=== PATIENT | male | born 1965 | race Caucasian/White ===

== ENCOUNTER 2018-04-14 19:45 | Emergency (ER) | payer MEDICAID ==
[~2018-04-14] VITALS: Ht 175.3 cm; Wt 81.6 kg
[2018-04-14 19:52] VITALS: BP 129/82; Ht 175.3 cm; Wt 81.6 kg
== END 2018-04-14 22:00 | disposition home or self-care (01) ==
LOC: D.ER 19:45
DX: S01.01XA Laceration without foreign body of scalp, initial encounter (principal); Y04.2XXA Assault by strike against or bumped into by another person, initial encounter; Y93.89 Activity, other specified; Y92.89 Other specified places as the place of occurrence of the external cause; S40.012A Contusion of left shoulder, initial encounter; F17.200 Nicotine dependence, unspecified, uncomplicated

== ENCOUNTER 2018-04-23 20:02 | Emergency (ER) | payer MEDICAID ==
[~2018-04-23] VITALS: Ht 175.3 cm; Wt 81.8 kg
[2018-04-23 21:49] VITALS: BP 141/91; Ht 175.3 cm; Wt 81.8 kg
[2018-04-23] MEDS ORDERED: DEPAKOTE125 MG PO (21:51)
[2018-04-23] MEDS ORDERED: PRILOSEC2.5 MG (21:52)
[2018-04-23 22:49] LABS: BASOPHILS 0.2 % (0-2); EOSINOPHILS 2.5 % (0-7); HEMATOCRIT 41.8 % (42.0-54.0); IMMATURE GRANULOCYTES 0.2 % (0-5); LYMPHOCYTES 28.5 % (15-50); MCH 31.5 pg (26.0-34.0); MCHC 33.5 g/dL (31.0-37.0); MCV 94.1 fL (80.0-100.0); MEAN PLATELET VOLUME 8.7 fL (7.4-10.4); MONOCYTES 10.2 % (2-11); NEUTROPHILS 58.4 % (40-80); PLATELET COUNT 231 10x3/uL (130-400); RBC 4.44 10x6/uL (4.20-6.10); RDW 14.3 % (11.5-14.5)
[2018-04-23 22:50] LABS: APTT 25.7 SECONDS (22.8-39.4); INR 0.95 (0.85-1.17); PROTIME 12.3 SECONDS (11.6-15.0)
[2018-04-23 22:52] LABS: D-DIMER-QUANTITATIVE 1.56 ug/mLFEU (0.20-0.54)
[2018-04-23 22:58] LABS: ALBUMIN 3.4 g/dL (3.4-5.0); ALKALINE PHOSPHATASE 99 U/L (46-116); ALT (SGPT) 20 U/L (10-68); BILIRUBIN - TOTAL 0.36 mg/dL (0.2-1.3); CALC OSMOLALITY 273 mosm/kg (275-300); CALCIUM 8.5 mg/dL (8.5-10.1); CARBON DIOXIDE 29.5 mmol/L (21.0-32.0); CHLORIDE - SERUM 102 mmol/L (98-107); CREATININE - SERUM 0.8 mg/dL (0.6-1.3); GLUCOSE 83 mg/dL (74-106); POTASSIUM - SERUM 4.2 mmol/L (3.5-5.1); PROTEIN - SERUM 7.4 g/dL (6.4-8.2); SODIUM 138 mmol/L (136-145); UREA NITROGEN 11 mg/dL (7-18); eGFR NON AFRICAN AMERICAN > 90 mL/min (90-120)
[2018-04-23 23:08] LABS: CKMB 2.3 U/L (0.0-3.6); CREATINE KINASE 122 UL (21-232)
[2018-04-23 23:09] LABS: TROPONIN-I < 0.017 ng/mL (0.000-0.060)
== END 2018-04-24 05:01 | disposition left against medical advice (07) ==
LOC: D.ER 20:02
PROVIDERS: Family Medicine
DX: R07.9 Chest pain, unspecified (principal); R79.1 Abnormal coagulation profile; K21.9 Gastro-esophageal reflux disease without esophagitis; F17.200 Nicotine dependence, unspecified, uncomplicated

== ENCOUNTER 2018-07-20 21:54 | Inpatient (IN) | payer MEDICAID ==
[~2018-07-20] VITALS: Ht 175.3 cm; Wt 76.4 kg
--- NOTE | ~2018-07-20 | MORECARE ---
CASE MANAGEMENT DISCHARGE SUMMARY PATIENT: WILLIAM LACEY UNIT: [id number] ADM DATE: 07/21/18 AGE: 53 : 67 SEX: M ROOM/BED: D.2206 AUTHOR: BOLIVAR,DOC PHYSICIAN: REFERRING PHYSICIAN: RAQUEL HOPKINS MD DATE OF SERVICE: 07/22/18 Discharge Plan Patient Name: WILLIAM LACEY Facility: [facility]:[place] : 1965 Planned Disposition: Home Anticipated Discharge Date: 07/22/18 Discharge Date: 07/22/2018 Expected LOS: 1 Initial Reviewer: [email or web address] Initial Review Date: 07/21/2018 Generated: 07/22/18 4:42 pm Comments DCP- Discharge Planning Updated by [email or web address]: Adri Tapia on 07/22/18 2:[address] LATE ENTRY 1300 CM TO PATIENT'S ROOM TWICE. HE WAS NOT PRESENT. HE WAS OUT WALKING WITH A FRIEND PER NURSING STAFF. PATIENT STATES HE IS BEING DISCHARGED TO HOME WITH HIS SISTER. CM HAD CALLED [facility] TO FOLLOW UP ON DISCHARGE INSTRUCTIONS GIVEN TO THE PATIENT FOR FOLLOWUP CARE PER PSYCH ADMISSION. MIN REPORTS HE IS HOMELESS. HAD BEEN TO [facility] ER PRIOR TO BEING ADMITTED TO [facility] FROM [facility]. HE WAS DISCHARGED ON MONDAY FROM [facility]. SEEN HERE AT [facility] AND ADMITTED Monday07/20/18. HE DOES HAVE COURT DATES TO FOLLOWUP. HAD BEEN SCHEDULED FOR 07/17, 07/30, 08/05. PATIENT STATED HE HAS SOMEPLACE TO GO POST DISCHARGE, INDICATED HIS SISTER'S HOME WHEN ASKED. PCP- DR FUAD GHOTRA HE THINKS. PHARMACY- [facility] HE STATES HE HAS TRANSPORTATION. DENIES ANY NEEDS! HAD MEDICATION RETURNED TO HIM FROM THE ER PYXIS ASSISTED BY CLINICAL COORDINATOR. PRIMARY TO BRING DISCHARGE PAPERWORK WHEN COMPLETED DCPIA - Discharge Planning Initial Assessment Updated by [email or web address]: Adri Tapia on 07/22/18 3:22 pm * Is the patient Alert and Oriented? Yes * How many steps to enter\exit or inside your home? none * PCP DR FUAD GHOTRA * Pharmacy [facility] * Preadmission Environment Homeless * Other Environment [facility] DISCHARGED 07/18/18 * Facility Name [facility] * ADLs Independent * Equipment None * Other Equipment DENIES ANY ADDITIONAL DME * List name and contact numbers for known caregivers / representatives who currently or will assist patient after discharge: SOTERO DEE- FBLYIR-[phone] * Verbal permission to speak to the caregivers and representatives has been obtained from the patient. No * Community resources currently utilized None * Please name any agencies selected above. N/A * Additional services required to return to the preadmission environment? No * Can the patient safely return to the preadmission environment? Yes * Has this patient been hospitalized within the prior 30 days at any hospital? Yes Last DP export: 07/22/18 2:29 Patient Name: WILLIAM LACEY Page 71405 at 1542 All edits/amendments must be made on the electronic document DICTATION DATE: 07/22/18 154 CLINICAL ASSESSMENT MANAGER: DAMIEN 07/22/18 154 RPT#: [id number] DC DATE:07/22/18 STATUS: DIS IN [facility] [address] [place] [address] END OF REPORT
--- NOTE | ~2018-07-20 | MORECARE ---
CASE MANAGEMENT DISCHARGE SUMMARY PATIENT: WILLIAM LACEY UNIT: [id number] ADM DATE: 07/21/18 AGE: 53 : 67 SEX: M ROOM/BED: D.2206 AUTHOR: BOLIVAR,DOC PHYSICIAN: REFERRING PHYSICIAN: RAQUEL HOPKINS MD DATE OF SERVICE: 07/23/18 Discharge Plan Patient Name: WILLIAM LACEY Facility: [facility]:[place] : 1965 Planned Disposition: Home Anticipated Discharge Date: 07/22/18 Discharge Date: 07/22/2018 Expected LOS: 1 Initial Reviewer: [email or web address] Initial Review Date: 07/21/2018 Generated: 07/23/18 12:11 pm Comments DCP- Discharge Planning Updated by [email or web address]: Adri Tapia on 07/22/18 2:[address] LATE ENTRY 1300 CM TO PATIENT'S ROOM TWICE. HE WAS NOT PRESENT. HE WAS OUT WALKING WITH A FRIEND PER NURSING STAFF. PATIENT STATES HE IS BEING DISCHARGED TO HOME WITH HIS SISTER. CM HAD CALLED [facility] TO FOLLOW UP ON DISCHARGE INSTRUCTIONS GIVEN TO THE PATIENT FOR FOLLOWUP CARE PER PSYCH ADMISSION. MIN REPORTS HE IS HOMELESS. HAD BEEN TO [facility] ER PRIOR TO BEING ADMITTED TO [facility] FROM [facility]. HE WAS DISCHARGED ON MONDAY FROM [facility]. SEEN HERE AT [facility] AND ADMITTED Monday07/20/18. HE DOES HAVE COURT DATES TO FOLLOWUP. HAD BEEN SCHEDULED FOR 07/17, 07/30, 08/05. PATIENT STATED HE HAS SOMEPLACE TO GO POST DISCHARGE, INDICATED HIS SISTER'S HOME WHEN ASKED. PCP- DR FUAD GHOTRA HE THINKS. PHARMACY- [facility] HE STATES HE HAS TRANSPORTATION. DENIES ANY NEEDS! HAD MEDICATION RETURNED TO HIM FROM THE ER PYXIS ASSISTED BY CLINICAL COORDINATOR. PRIMARY TO BRING DISCHARGE PAPERWORK WHEN COMPLETED DCPIA - Discharge Planning Initial Assessment Updated by [email or web address]: Adri Tapia on 07/22/18 3:22 pm * Is the patient Alert and Oriented? Yes * How many steps to enter\exit or inside your home? none * PCP DR FUAD GHOTRA * Pharmacy [facility] * Preadmission Environment Homeless * Other Environment [facility] DISCHARGED 07/18/18 * Facility Name [facility] * ADLs Independent * Equipment None * Other Equipment DENIES ANY ADDITIONAL DME * List name and contact numbers for known caregivers / representatives who currently or will assist patient after discharge: SOTERO DEE- [id number]-[phone] * Verbal permission to speak to the caregivers and representatives has been obtained from the patient. No * Community resources currently utilized None * Please name any agencies selected above. N/A * Additional services required to return to the preadmission environment? No * Can the patient safely return to the preadmission environment? Yes * Has this patient been hospitalized within the prior 30 days at any hospital? Yes Last DP export: 07/22/18 2:42 Patient Name: WILLIAM LACEY Page 61120 at 1111 All edits/amendments must be made on the electronic document DICTATION DATE: 07/23/18 1110 DREDGE OR BARGE SHORE HAND: DAMIEN 07/23/18 1110 RPT#: [id number] DC DATE:07/22/18 STATUS: DIS IN [facility] [address] [place] [address] END OF REPORT
--- NOTE | ~2018-07-20 | MORECARE ---
CASE MANAGEMENT DISCHARGE SUMMARY PATIENT: WILLIAM LACEY UNIT: [id number] ADM DATE: 07/21/18 AGE: 53 : 67 SEX: M ROOM/BED: D.2206 AUTHOR: ANDREA LUTZ PHYSICIAN: REFERRING PHYSICIAN: RAQUEL HOPKINS MD DATE OF SERVICE: 07/22/18 Discharge Plan Patient Name: WILLIAM LACEY [facility] [facility] 1965 Planned Disposition: Home Anticipated Discharge Date: 07/22/18 Discharge Date: 07/22/2018 Expected LOS: 1 Initial Reviewer: [email or web address] Initial Review Date: 07/21/2018 Generated: 07/22/18 4:29 pm DCPIA - Discharge Planning Initial Assessment Updated by [email or web address]: Adri Tapia on 07/22/18 3:22 pm * Is the patient Alert and Oriented? Yes * How many steps to enter\exit or inside your home? none * PCP DR FUAD GHOTRA * Pharmacy [facility] * Preadmission Environment Homeless * Other Environment [facility] DISCHARGED 07/18/18 * Facility Name [facility] * ADLs Independent * Equipment None * Other Equipment DENIES ANY ADDITIONAL DME * List name and contact numbers for known caregivers / representatives who currently or will assist patient after discharge: S[facility]ERO [facility]ZL-[phone] * Verbal permission to speak to the caregivers and representatives has been obtained from the patient. No * Community resources currently utilized None * Please name any agencies selected above. N/A * Additional services required to return to the preadmission environment? No * Can the patient safely return to the preadmission environment? Yes * Has this patient been hospitalized within the prior 30 days at any hospital? Yes Last DP export: 07/22/18 2:21 Patient Name: WILLIAM LACEY Page 17854 at 1522 All edits/amendments must be made on the electronic document DICTATION DATE: 07/22/18 152 CORDWOOD CUTTER: DAMIEN 07/22/18 1529 RPT#: [id number] DC DATE:07/22/18 STATUS: DIS IN [facility] [address] [place] [address] END OF REPORT
--- NOTE | ~2018-07-20 | MORECARE ---
CASE MANAGEMENT DISCHARGE SUMMARY PATIENT: WILLIAM LACEY UNIT: [id number] ADM DATE: 07/21/18 AGE: 53 : 67 SEX: M ROOM/BED: D.2206 AUTHOR: ANDREA LUTZ PHYSICIAN: REFERRING PHYSICIAN: RAQUEL HOPKINS MD DATE OF SERVICE: 07/22/18 Discharge Plan Patient Name: WILLIAM LACEY [facility] [facility] 1965 Planned Disposition: Home Anticipated Discharge Date: 07/22/18 Discharge Date: 07/22/2018 Expected LOS: 1 Initial Reviewer: [email or web address] Initial Review Date: 07/21/2018 Generated: 07/22/18 4:21 pm Patient Name: WILLIAM LACEY Page 31449 at 1521 All edits/amendments must be made on the electronic document DICTATION DATE: 07/22/18 1521 CATEGORY DEVELOPMENT MANAGER: DAMIEN 07/22/18 1521 RPT#: [id number] DC DATE:07/22/18 STATUS: DIS IN [facility] [address] [place] [address] END OF REPORT
[~2018-07-20 21:54] MED LIST: DEPAKOTE125 MG PO; PRILOSEC2.5 MG
[2018-07-20 22:34] LABS: BASOPHILS 0.2 % (0-2); EOSINOPHILS 2.2 % (0-7); HEMATOCRIT 38.5 % (42.0-54.0); HEMOGLOBIN 13.2 g/dL (13.5-17.5); IMMATURE GRANULOCYTES 0.2 % (0-5); LYMPHOCYTES 49.7 % (15-50); MCH 32.2 pg (26.0-34.0); MCHC 34.3 g/dL (31.0-37.0); MCV 93.9 fL (80.0-100.0); MEAN PLATELET VOLUME 9.1 fL (7.4-10.4); MONOCYTES 8.2 % (2-11); NEUTROPHILS 39.5 % (40-80); PLATELET COUNT 160 10x3/uL (130-400); RDW 17.2 % (11.5-14.5); WBC 5.4 10x3/uL (4.8-10.8)
[2018-07-20 22:39] LABS: ALBUMIN 3.5 g/dL (3.4-5.0); ALKALINE PHOSPHATASE 83 U/L (46-116); ALT (SGPT) 48 U/L (10-68); BILIRUBIN - TOTAL 0.23 mg/dL (0.2-1.3); CALC OSMOLALITY 293 mosm/kg (275-300); CALCIUM 8.7 mg/dL (8.5-10.1); CARBON DIOXIDE 26.7 mmol/L (21.0-32.0); CHLORIDE - SERUM 110 mmol/L (98-107); CREATININE - SERUM 0.8 mg/dL (0.6-1.3); GLUCOSE 102 mg/dL (74-106); POTASSIUM - SERUM 3.9 mmol/L (3.5-5.1); PROTEIN - SERUM 6.9 g/dL (6.4-8.2); SODIUM 149 mmol/L (136-145); UREA NITROGEN 7 mg/dL (7-18); eGFR NON AFRICAN AMERICAN > 90 mL/min (90-120)
[2018-07-20 22:48] LABS: AMYLASE - SERUM 86 U/L (25-115); CKMB 0.9 U/L (0.0-3.6); CREATINE KINASE 94 UL (21-232); LIPASE 1324 U/L (73-393); MAGNESIUM - SERUM 2.5 mg/dL (1.8-2.4)
[2018-07-20 22:50] LABS: TROPONIN-I < 0.017 ng/mL (0.000-0.060)
[2018-07-20 23:01] LABS: APPEARANCE CLEAR (CLEAR); BILIRUBIN NEGATIVE (NEGATIVE); COLOR YELLOW (YELLOW); GLUCOSE NEGATIVE (NEGATIVE); KETONE SMALL mg/dL (NEGATIVE); NITRITE NEGATIVE (NEGATIVE); PROTEIN NEGATIVE (NEGATIVE); SPECIFIC GRAVITY 1.015 (1.005-1.020); UROBILINOGEN NORMAL (NORMAL)
[2018-07-20 23:11] LABS: UDS - AMPHET NEGATIVE QUAL (NEGATIVE); UDS - BARB NEGATIVE QUAL (NEGATIVE); UDS - BENZO POSITIVE QUAL (NEGATIVE); UDS - COCAINE NEGATIVE QUAL (NEGATIVE); UDS - OPIATE NEGATIVE QUAL (NEGATIVE); UDS - PCP NEGATIVE QUAL (NEGATIVE); UDS - THC POSITIVE QUAL (NEGATIVE)
[2018-07-21 00:36] VITALS: BP 122/78
[2018-07-21] MEDS ORDERED: BUSPAR10 MG PO (01:10)
[2018-07-21] MEDS ORDERED: ULTRAM50 MG PO (01:10)
[2018-07-21 01:22] VITALS: BP 106/78; Ht 175.3 cm; Wt 76.4 kg
[2018-07-21 04:00] VITALS: BP 111/64
[2018-07-21 06:22] LABS: BASOPHILS 0.4 % (0-2); EOSINOPHILS 1.6 % (0-7); HEMOGLOBIN 12.3 g/dL (13.5-17.5); IMMATURE GRANULOCYTES 0.2 % (0-5); LYMPHOCYTES 51.1 % (15-50); MCH 31.9 pg (26.0-34.0); MCHC 34.2 g/dL (31.0-37.0); MCV 93.5 fL (80.0-100.0); MEAN PLATELET VOLUME 8.9 fL (7.4-10.4); MONOCYTES 10.6 % (2-11); NEUTROPHILS 36.1 % (40-80); PLATELET COUNT 141 10x3/uL (130-400); RBC 3.85 10x6/uL (4.20-6.10); RDW 17.5 % (11.5-14.5); WBC 5.5 10x3/uL (4.8-10.8)
[2018-07-21 06:52] LABS: ALBUMIN 3.5 g/dL (3.4-5.0); ALKALINE PHOSPHATASE 76 U/L (46-116); ALT (SGPT) 48 U/L (10-68); BILIRUBIN - TOTAL 0.21 mg/dL (0.2-1.3); CALC OSMOLALITY 286 mosm/kg (275-300); CALCIUM 8.3 mg/dL (8.5-10.1); CARBON DIOXIDE 25.7 mmol/L (21.0-32.0); CHLORIDE - SERUM 109 mmol/L (98-107); CKMB 1.2 U/L (0.0-3.6); CREATINE KINASE 107 UL (21-232); CREATININE - SERUM 0.7 mg/dL (0.6-1.3); GLUCOSE 98 mg/dL (74-106); LIPASE 368 U/L (73-393); POTASSIUM - SERUM 4.2 mmol/L (3.5-5.1); PROTEIN - SERUM 6.7 g/dL (6.4-8.2); SODIUM 145 mmol/L (136-145); UREA NITROGEN 8 mg/dL (7-18); eGFR NON AFRICAN AMERICAN > 90 mL/min (90-120)
[2018-07-21 06:53] LABS: AMYLASE - SERUM 60 U/L (25-115); TROPONIN-I < 0.017 ng/mL (0.000-0.060)
[2018-07-21 12:33] VITALS: BP 122/57
[2018-07-21 17:34] VITALS: BP 139/97
[2018-07-21 19:50] VITALS: BP 134/80
[2018-07-22] VITALS: BP 130/87
[2018-07-22 04:00] VITALS: BP 131/87
[2018-07-22 06:35] LABS: BASOPHILS 0.6 % (0-2); EOSINOPHILS 3.4 % (0-7); HEMOGLOBIN 12.2 g/dL (13.5-17.5); IMMATURE GRANULOCYTES 0.2 % (0-5); LYMPHOCYTES 43.9 % (15-50); MCH 31.6 pg (26.0-34.0); MCHC 33.9 g/dL (31.0-37.0); MCV 93.3 fL (80.0-100.0); MEAN PLATELET VOLUME 9.3 fL (7.4-10.4); MONOCYTES 14.6 % (2-11); NEUTROPHILS 37.3 % (40-80); PLATELET COUNT 141 10x3/uL (130-400); RBC 3.86 10x6/uL (4.20-6.10); RDW 16.5 % (11.5-14.5); WBC 4.7 10x3/uL (4.8-10.8)
[2018-07-22 07:05] LABS: ALBUMIN 3.2 g/dL (3.4-5.0); ALKALINE PHOSPHATASE 77 U/L (46-116); ALT (SGPT) 41 U/L (10-68); BILIRUBIN - TOTAL 0.98 mg/dL (0.2-1.3); CALC OSMOLALITY 275 mosm/kg (275-300); CALCIUM 8.4 mg/dL (8.5-10.1); CARBON DIOXIDE 26.4 mmol/L (21.0-32.0); CHLORIDE - SERUM 105 mmol/L (98-107); CREATININE - SERUM 0.6 mg/dL (0.6-1.3); GLUCOSE 101 mg/dL (74-106); LIPASE 105 U/L (73-393); POTASSIUM - SERUM 3.7 mmol/L (3.5-5.1); PROTEIN - SERUM 6.1 g/dL (6.4-8.2); SODIUM 140 mmol/L (136-145); eGFR NON AFRICAN AMERICAN > 90 mL/min (90-120)
[2018-07-22 07:06] LABS: UREA NITROGEN 5 mg/dL (7-18)
[2018-07-22 12:18] VITALS: BP 143/87
[2018-07-22] MEDS ORDERED: LIBRIUM25 MG PO (12:32)
== END 2018-07-22 13:53 | disposition home or self-care (01) | DRG 439 ==
LOC: OBSVTIME → D.ER 21:54 → D.MS 23:55 → OBSVTIME 23:55 → D.MS 07-21 11:31
PROVIDERS: Family Medicine; Internal Medicine Nephrology
DX: K85.20 Alcohol induced acute pancreatitis without necrosis or infection (principal); F10.239 Alcohol dependence with withdrawal, unspecified; D64.9 Anemia, unspecified; F10.229 Alcohol dependence with intoxication, unspecified; F12.10 Cannabis abuse, uncomplicated; Y90.8 Blood alcohol level of 240 mg/100 ml or more; G40.909 Epilepsy, unspecified, not intractable, without status epilepticus; F32.9 Major depressive disorder, single episode, unspecified; M17.12 Unilateral primary osteoarthritis, left knee; F17.210 Nicotine dependence, cigarettes, uncomplicated

== ENCOUNTER 2018-07-26 00:16 | Inpatient (IN) | payer MEDICAID ==
[2018-07-26] VITALS (10 sets, daily range): BP systolic 95–120; BP diastolic 57–98; Ht 175.3 cm; Wt 77.1 kg
[~2018-07-26] VITALS: Ht 175.3 cm; Wt 77.1 kg
--- NOTE | ~2018-07-26 | MORECARE ---
CASE MANAGEMENT DISCHARGE SUMMARY PATIENT: WILLIAM LACEY UNIT: [id number] ADM DATE: 07/26/18 AGE: 53 : 67 SEX: M ROOM/BED: D.2306 AUTHOR: ANDREA LUTZ PHYSICIAN: REFERRING PHYSICIAN: NIKOLAY CASTELLANO MD DATE OF SERVICE: 07/27/18 Discharge Plan Patient Name: WILLIAM LACEY Facility: [facility]:[place] : 1965 Planned Disposition: Facility for outpatient services Anticipated Discharge Date: Discharge Date: Expected LOS: Initial Reviewer: [email or web address] Initial Review Date: 07/26/2018 Generated: 07/27/18 6:08 pm Comments DCP- Discharge Planning Updated by [email or web address]: Jillian Salas on 07/27/18 4:[address] Patient Name: WILLIAM LACEY Admission Status: ER Accout number: [id number] Admission Date: 07-26-2018 : 1965 Admission Diagnosis: Attending: NIKOLAY CASTELLANO Current LOS: 1 Anticipated DC Date: Planned Disposition: Facility for outpatient services Primary Insurance: MEDICAID [place] Discharge Planning Comments: CM met with patient after Dr. Hernandez seen patient. Patient is requesting to go into drug rehab facility. CM assisted patient with prescreening form for [facility]. CM awaiting response from [facility] at this time. [facility] will contact patient for phone interview. CM gave ICU number for call back [phone]. CM will continue to follow and assist as needed with discharge planning / needs. Telegraphic Typewriter Mechanic: Jillian Salas Last DP export: 07/27/18 3:59 Patient Name: WILLIAM LACEY Page [id number] at 1708 All edits/amendments must be made on the electronic document DICTATION DATE: 07/27/181707 MANUFACTURING STOREPERSON: DAMIEN 07/27/181707 RPT#: [id number] DC DATE: STATUS: ADM IN [facility] [address] [place] [address] END OF REPORT
--- NOTE | ~2018-07-26 | MORECARE ---
CASE MANAGEMENT DISCHARGE SUMMARY PATIENT: WILLIAM LACEY UNIT: [id number] ADM DATE: 07/26/18 AGE: 53 : 67 SEX: M ROOM/BED: D.2306 AUTHOR: BOLIVARDOC PHYSICIAN: REFERRING PHYSICIAN: NIKOLAY CASTELLANO MD DATE OF SERVICE: 07/28/18 Discharge Plan Patient Name: WILLIAM LACEY Facility: [facility]:[place] : 1965 Planned Disposition: Facility for outpatient services Anticipated Discharge Date: Discharge Date: Expected LOS: Initial Reviewer: [email or web address] Initial Review Date: 07/26/2018 Generated: 07/28/18 6:44 pm Comments DCP- Discharge Planning Updated by [email or web address]: Adri Tapia on 07/28/18 4:[address] CM RECEIVED TELEPHONE CALL FROM THE PRIMARY NURSE, PANKAJ REGARDING DISCHARGE TO [facility]. NO CALL BACK TO ICU REGARDING ADMISSION. 1145 TC TO [facility]. CM SPOKE WITH DENNIS. NO ADMISSIONS OVER THE WEEKEND. CALL ON MONDAY TO SPEAK WITH NAILA. CM ADVISED THE NURSE. PATIENT WANTED TO SPEAK WITH SOMEONE REGARDING HIS FEELINGS. ADVISED NURSE TO CONTACT [facility]. "JAKOB" TO VISIT WITH THE PATIENT TODAY FROM [facility]. DCP- Discharge Planning Updated by [email or web address]: Jillian Salas on 07/27/18 4:[address] Patient Name: WILLIAM LACEY Admission Status: ER Accout number: [id number] Admission Date: 07-26-2018 : 1965 Admission Diagnosis: Attending: NIKOLAY CASTELLANO Current LOS: 1 Anticipated DC Date: Planned Disposition: Facility for outpatient services Primary Insurance: MEDICAID [place] Discharge Planning Comments: CM met with patient after Dr. Hernandez seen patient. Patient is requesting to go into drug rehab facility. CM assisted patient with prescreening form for [facility]. CM awaiting response from [place] at this time. [place] will contact patient for phone interview. CM gave ICU number for call back [phone]. CM will continue to follow and assist as needed with discharge planning / needs. Asset Manager: Jillian Salas Last DP export: 10/19/18 4:08 Patient Name: WILLIAM LACEY Page 62458 at 1744 All edits/amendments must be made on the electronic document DICTATION DATE: 07/28/181742 FUEL ASSEMBLER: DAMIEN 07/28/181742 RPT#: [id number] DC DATE: STATUS: ADM IN [facility] [address] [place] [address] END OF REPORT
--- NOTE | ~2018-07-26 | CN ---
PATIENT NAME:WILLIAM LACEY MEDICAL RECORD: [id number] : 67 LOCATION:[place]YST[place].2306 ADMIT DATE: 07/26/18 ACCOUNT: [id number] CONSULTING PHYSICIAN: ABIGAIL BOLANOS MD REFERRING PHYSICIAN: NIKOLAY CASTELLANO MD DATE OF CONSULTATION: 07/27/2018 IDENTIFYING DATA: The patient is 53 years old and he is admitted to the hospital on a voluntary basis. CHIEF COMPLAINT: Alcoholism. HISTORY OF PRESENT ILLNESS: The patient has a long history of alcoholism. He was here earlier this month for acute pancreatitis and was discharged on the 22 of July. He was sent home with Librium and told not to drink and referred to outpatient treatment. He immediately went to the liquor store and began drinking again. His behaviors have now gotten him kicked out of his apartment. He is unemployed and homeless. He was drunk and presented to the ER last night complaining of abdominal pain. He was going to be discharged from the Emergency Room and he said he would shoot himself if sent home. Today, he is sober and he tells me that he wants help. He says he does not intend to kill himself. He just said that in the Emergency Room because he did not want to go out into the cold. He says that he wants help with his alcoholism and knows that he cannot do it on his own on an outpatient basis. He is requesting that I send him to a residential program for alcohol abuse. He does endorse depressive symptoms and he does have a psychiatric history, but he is not suicidal or psychotic at this point. MENTAL STATUS EXAMINATION: The patient is awake, alert and oriented to person, place, time and situation. His mood is depressed. His affect is appropriate. Thought processes are goal directed. Memory, concentration, and abstraction abilities are intact, and he has no psychotic symptoms as well as no thoughts of harming himself or others. ASSESSMENT: 1. Alcohol dependence. 2. Major depression. PLAN: At this time, I am comfortable sending the patient to an inpatient residential program for medical detox and residential substance abuse treatment. I have spoken with his nurse and the case supervisor who are going to assist in arranging this transport. TRANSINT:[id number] Voice Confirmation ID: [id number] DOCUMENT ID: [id number] ABIGAIL BOLANOS MD at 0926 CC: [id number] DICTATION DATE: 07/27/18 1141 PRIMARY CARE SALES REPRESENTATIVE: 07/27/18 1150 ADM IN [place] [id number] [place] [id number]
--- NOTE | ~2018-07-26 | MORECARE ---
CASE MANAGEMENT DISCHARGE SUMMARY PATIENT: WILLIAM LACEY UNIT: [id number] ADM DATE: 07/26/18 AGE: 53 : 67 SEX: M ROOM/BED: D.2306 AUTHOR: ANDREA LUTZ PHYSICIAN: REFERRING PHYSICIAN: NIKOLAY CASTELLANO MD DATE OF SERVICE: 07/30/18 Discharge Plan Patient Name: WILLIAM LACEY Facility: [facility]:[place] : 1965 Planned Disposition: Facility for outpatient services Anticipated Discharge Date: Discharge Date: 07/30/2018 Expected LOS: Initial Reviewer: [email or web address] Initial Review Date: 07/26/2018 Generated: 07/30/18 6:36 pm Comments DCP- Discharge Planning Updated by [email or web address]: Adri Tapia on 07/28/18 4:[address] CM RECEIVED TELEPHONE CALL FROM THE PRIMARY NURSE, PANKAJ REGARDING DISCHARGE TO [facility]. NO CALL BACK TO ICU REGARDING ADMISSION. 1145 TC TO [facility]. CM SPOKE WITH DENNIS. NO ADMISSIONS OVER THE WEEKEND. CALL ON MONDAY TO SPEAK WITH NAILA. CM ADVISED THE NURSE. PATIENT WANTED TO SPEAK WITH SOMEONE REGARDING HIS FEELINGS. ADVISED NURSE TO CONTACT [facility]. "JAKOB" TO VISIT WITH THE PATIENT TODAY FROM [facility]. DCP- Discharge Planning Updated by [id number]: Jillian Salas on 07/27/18 4:[address] Patient Name: WILLIAM LACEY Admission Status: ER Accout number: [id number] Admission Date: 07-26-2018 : 1965 Admission Diagnosis: Attending: NIKOLAY CASTELLANO Current LOS: 1 Anticipated DC Date: Planned Disposition: Facility for outpatient services Primary Insurance: MEDICAID [place] Discharge Planning Comments: CM met with patient after Dr. Hernandez seen patient. Patient is requesting to go into drug rehab facility. CM assisted patient with prescreening form for [facility]. CM awaiting response from [place] at this time. [facility] will contact patient for phone interview. CM gave ICU number for call back [phone]. CM will continue to follow and assist as needed with discharge planning / needs. Bicycle I Assembler: Jillian Salas Last DP export: 07/28/18 4:44 Patient Name: WILLIAM LACEY Page 48641 at 1737 All edits/amendments must be made on the electronic document DICTATION DATE: 07/30/181735 DATA INTEGRITY ANALYST: DAMIEN 07/30/181735 RPT#: [id number] DC DATE:07/30/18 STATUS: DIS IN [facility] [address] [place] [address] END OF REPORT
--- NOTE | ~2018-07-26 | MORECARE ---
CASE MANAGEMENT DISCHARGE SUMMARY PATIENT: WILLIAM LACEY UNIT: [id number] ADM DATE: 07/26/18 AGE: 53 : [birth year] SEX: M ROOM/BED: D.2306 AUTHOR: ANDREA LUTZ PHYSICIAN: REFERRING PHYSICIAN: NIKOLAY CASTELLANO MD DATE OF SERVICE: 07/27/18 Discharge Plan Patient Name: WILLIAM LACEY [facility] : 1965 Planned Disposition: Anticipated Discharge Date: Discharge Date: Expected LOS: Initial Reviewer: [email or web address] Initial Review Date: 07/26/2018 Generated: 07/27/18 1:53 pm External Providers External Provider: OTHER-OTHER Next Contact Date: Service Request Date: Service Type: Resolution: Reviewer: Comments: Last DP export: 07/26/18 4:15 Patient Name: WILLIAM LACEY Page 88194 at 1253 All edits/amendments must be made on the electronic document DICTATION DATE: 07/27/18 1252 GRAVITY PROSPECTING OPERATOR HELPER: DAMIEN 07/27/18 1252 RPT#: [id number] DC DATE: STATUS: ADM IN [facility] [address] [place] [address] END OF REPORT
--- NOTE | ~2018-07-26 | MORECARE ---
CASE MANAGEMENT DISCHARGE SUMMARY PATIENT: WILLIAM LACEY UNIT: [id number] ADM DATE: 07/26/18 AGE: 53 : [birth year] SEX: M ROOM/BED: D.2306 AUTHOR: ANDREA LUTZ PHYSICIAN: REFERRING PHYSICIAN: NIKOLAY CASTELLANO MD DATE OF SERVICE: 07/26/18 Discharge Plan Patient Name: WILLIAM LACEY [facility] [facility] 1965 Planned Disposition: Anticipated Discharge Date: Discharge Date: Expected LOS: Initial Reviewer: [email or web address] Initial Review Date: 07/26/2018 Generated: 07/26/18 6:15 pm Patient Name: WILLIAM LACEY Page 91695 at 1715 All edits/amendments must be made on the electronic document DICTATION DATE: 07/26/181713 MASTIC FLOOR LAYER: DAMIEN 07/26/181713 RPT#: [id number] DC DATE: STATUS: ADM IN [facility] [address] [place] [address] END OF REPORT
--- NOTE | ~2018-07-26 | MORECARE ---
CASE MANAGEMENT DISCHARGE SUMMARY PATIENT: WILLIAM LACEY UNIT: [id number] ADM DATE: 07/26/18 AGE: 53 : 67 SEX: M ROOM/BED: D.2306 AUTHOR: ANDREA LUTZ PHYSICIAN: REFERRING PHYSICIAN: NIKOLAY CASTELLANO MD DATE OF SERVICE: 07/27/18 Discharge Plan Patient Name: WILLIAM LACEY [facility] [facility] 1965 Planned Disposition: Facility for outpatient services Anticipated Discharge Date: Discharge Date: Expected LOS: Initial Reviewer: [email or web address] Initial Review Date: 07/26/2018 Generated: 07/27/18 5:59 pm Last DP export: 07/27/18 11:53 Patient Name: WILLIAM LACEY Page 66760 at 1658 All edits/amendments must be made on the electronic document DICTATION DATE: 07/27/181658 DRUG AND ALCOHOL COUNSELOR: DAMIEN 07/27/181658 RPT#: [id number] DC DATE: STATUS: ADM IN [facility] [address] [place] [address] END OF REPORT
[~2018-07-26 00:16] MED LIST changes: +BUSPAR10 MG PO; +LIBRIUM25 MG PO; +ULTRAM50 MG PO
[2018-07-26 00:35] LABS: UDS - AMPHET NEGATIVE QUAL (NEGATIVE); UDS - BARB NEGATIVE QUAL (NEGATIVE); UDS - BENZO POSITIVE QUAL (NEGATIVE); UDS - COCAINE NEGATIVE QUAL (NEGATIVE); UDS - OPIATE NEGATIVE QUAL (NEGATIVE); UDS - PCP NEGATIVE QUAL (NEGATIVE); UDS - THC POSITIVE QUAL (NEGATIVE)
[2018-07-26 01:04] LABS: BASOPHILS 0.2 % (0-2); EOSINOPHILS 1.8 % (0-7); HEMATOCRIT 35.5 % (42.0-54.0); HEMOGLOBIN 12.1 g/dL (13.5-17.5); IMMATURE GRANULOCYTES 0.2 % (0-5); LYMPHOCYTES 33.6 % (15-50); MCH 32.3 pg (26.0-34.0); MCHC 34.1 g/dL (31.0-37.0); MCV 94.7 fL (80.0-100.0); MEAN PLATELET VOLUME 8.7 fL (7.4-10.4); MONOCYTES 14.6 % (2-11); NEUTROPHILS 49.6 % (40-80); RBC 3.75 10x6/uL (4.20-6.10); RDW 16.3 % (11.5-14.5)
[2018-07-26 01:16] LABS: PLATELET COUNT 192 10x3/uL (130-400)
[2018-07-26 01:20] LABS: ALBUMIN 3.3 g/dL (3.4-5.0); ALKALINE PHOSPHATASE 73 U/L (46-116); ALT (SGPT) 28 U/L (10-68); BILIRUBIN - TOTAL 0.38 mg/dL (0.2-1.3); CALC OSMOLALITY 278 mosm/kg (275-300); CALCIUM 8.1 mg/dL (8.5-10.1); CARBON DIOXIDE 28.6 mmol/L (21.0-32.0); CHLORIDE - SERUM 105 mmol/L (98-107); CREATININE - SERUM 0.8 mg/dL (0.6-1.3); PROTEIN - SERUM 6.6 g/dL (6.4-8.2); SODIUM 142 mmol/L (136-145); UREA NITROGEN 7 mg/dL (7-18); eGFR NON AFRICAN AMERICAN > 90 mL/min (90-120)
[2018-07-26 01:28] LABS: LIPASE 991 U/L (73-393)
[2018-07-26 01:32] LABS: GLUCOSE 63 mg/dL (74-106)
[2018-07-26 07:33] LABS: APPEARANCE CLEAR (CLEAR); BILIRUBIN NEGATIVE (NEGATIVE); COLOR STRAW (YELLOW); GLUCOSE NEGATIVE (NEGATIVE); KETONE NEGATIVE (NEGATIVE); NITRITE NEGATIVE (NEGATIVE); PROTEIN NEGATIVE (NEGATIVE); SPECIFIC GRAVITY 1.005 (1.005-1.020)
[2018-07-27] VITALS (21 sets, daily range): BP systolic 103–133; BP diastolic 68–93
[2018-07-27 03:16] LABS: BASOPHILS 0.9 % (0-2); HEMATOCRIT 35.3 % (42.0-54.0); HEMOGLOBIN 11.9 g/dL (13.5-17.5); LYMPHOCYTES 45.9 % (15-50); MCHC 33.7 g/dL (31.0-37.0); MCV 94.9 fL (80.0-100.0); MONOCYTES 13.4 % (2-11); NEUTROPHILS 36.8 % (40-80); PLATELET COUNT 226 10x3/uL (130-400); RBC 3.72 10x6/uL (4.20-6.10); RDW 16.6 % (11.5-14.5); WBC 4.6 10x3/uL (4.8-10.8)
[2018-07-27 03:47] LABS: ALBUMIN 2.9 g/dL (3.4-5.0); ALKALINE PHOSPHATASE 67 U/L (46-116); ALT (SGPT) 22 U/L (10-68); AMYLASE - SERUM 27 U/L (25-115); BILIRUBIN - TOTAL 0.56 mg/dL (0.2-1.3); CALC OSMOLALITY 275 mosm/kg (275-300); CALCIUM 8.2 mg/dL (8.5-10.1); CARBON DIOXIDE 21.4 mmol/L (21.0-32.0); CHLORIDE - SERUM 107 mmol/L (98-107); CREATININE - SERUM 0.6 mg/dL (0.6-1.3); GLUCOSE 82 mg/dL (74-106); LIPASE 88 U/L (73-393); POTASSIUM - SERUM 4.1 mmol/L (3.5-5.1); PROTEIN - SERUM 6.1 g/dL (6.4-8.2); SODIUM 140 mmol/L (136-145); UREA NITROGEN 6 mg/dL (7-18); eGFR NON AFRICAN AMERICAN > 90 mL/min (90-120)
[2018-07-28] VITALS (17 sets, daily range): BP systolic 83–135; BP diastolic 55–101
[2018-07-28 03:34] LABS: AMYLASE - SERUM 31 U/L (25-115); LIPASE 93 U/L (73-393)
[2018-07-29] VITALS (14 sets, daily range): BP systolic 108–129; BP diastolic 52–95
[2018-07-29 03:45] LABS: AMYLASE - SERUM 35 U/L (25-115); LIPASE 96 U/L (73-393)
[2018-07-30 04:21] LABS: LIPASE 140 U/L (73-393)
[2018-07-30 04:22] LABS: AMYLASE - SERUM 45 U/L (25-115)
[2018-07-30 08:00] VITALS: BP 119/74
[2018-07-30 09:45] VITALS: BP 119/89
[2018-07-30 15:00] VITALS: BP 125/76
== END 2018-07-30 17:13 | disposition home or self-care (01) | DRG 896 ==
LOC: D.ER 00:16 → D.ICU 09:53
PROVIDERS: Emergency Medicine; Family Medicine
DX: F10.229 Alcohol dependence with intoxication, unspecified (principal); K85.90 Acute pancreatitis without necrosis or infection, unspecified; R45.851 Suicidal ideations; F32.9 Major depressive disorder, single episode, unspecified; F12.90 Cannabis use, unspecified, uncomplicated; G89.29 Other chronic pain